=== PATIENT | female | born 1985 | race Caucasian/White ===

== ENCOUNTER 2021-11-29 12:05 | Emergency (ER) | payer MEDICAID ==
[~2021-11-29] VITALS: Ht 152.4 cm; Wt 75.0 kg
[2021-11-29] MEDS ORDERED: ACETAMINOPHEN 325MG TABLET PO PRN (12:15)
[2021-11-29] MEDS ORDERED: METOCLOPRAMIDE HCL 10MG/2ML VIAL IV NR (14:45)
[2021-11-29] MEDS ORDERED: MAGNESIUM/ALUMINUM HYDROXIDE/SIMETHICONE 30ML UDC PO NR (14:45)
[2021-11-29 16:24] LABS: BASOPHILS % 0.7 % (0.0-2.0); EOSINOPHILS % 0.7 % (0.0-5.0); HEMATOCRIT. 37.8 % (36.0-48.0); HEMOGLOBIN. 12.6 g/dL (12.0-16.0); LYMPHOCYTES % 17.2 % (20.0-50.0); MEAN CORPUSCULAR HEMOGLOBIN 27.6 pg (28.0-32.0); MEAN CORPUSCULAR VOLUME 82.8 fL (81.0-99.0); MEAN PLATELET VOLUME 7.4 fl (7.4-10.4); MONOCYTES % 6.6 % (2.0-8.0); NEUTROPHILS % 74.8 % (40.0-76.0); PLATELET 253 x1000/uL (130-400); RED BLOOD CELL COUNT 4.57 mill/uL (4.2-5.4); RED CELL DISTRIBUTION WIDTH 23.3 % (11.6-14.6)
[2021-11-29 16:27] LABS: CHLORIDE 110 mEq/L (98-107)
[2021-11-29] MEDS ORDERED: FAMO-135 MT (16:41)
[2021-11-29] MEDS ORDERED: METO-293 MT (16:41)
[2021-11-29] MEDS ORDERED: MAG-55 MT (16:41)
[2021-11-29] MEDS ORDERED: FAMOTIDINE 20MG TABLET PO NR (16:45)
[2021-11-29 16:46] LABS: PLATELET ESTIMATE NORMAL
[2021-11-29 16:50] LABS: B-HCG QUANTITATIVE 11823 mIU/mL (<3)
[2021-11-29 17:02] VITALS: BP 102/49
== END 2021-11-29 17:16 | disposition home or self-care (01) ==
LOC: ER 12:05
DX: O26.892 Other specified pregnancy related conditions, second trimester (principal); R10.13 Epigastric pain; Z3A.17 17 weeks gestation of pregnancy
CPT/HCPCS: 36415; 76700; 76805; 80053; 81025; 84702; 85025; 96374; 99284; J2765